=== PATIENT | female | born 1955 | race African-American/Black ===

== ENCOUNTER 2021-06-10 23:08 | Emergency (ER) | payer BC, SELFPAY ==
[2021-06-10] MEDS ORDERED: Acetaminophen 500 MG TAB ONE (23:38)
[2021-06-10] MEDS ORDERED: Sodium Chloride 0.9% 1,000 ML ONE (23:38)
[2021-06-10] MEDS ORDERED: Ondansetron PF 4 MG/2 ML Vial ONE (23:56)
[2021-06-11 00:06] LABS: #Lymphocytes 0.9 thou/uL (1.20-3.40); #Monocytes 0.3 thou/uL (0.11-0.59); #Neutrophils 1.8 thou/uL (1.40-6.50); %Basophils 0.3 % (0.0-1.0); %Lymphocytes 28.8 % (21.0-51.0); %Monocytes 9.2 % (0.0-10.0); %Neutrophils 61.7 % (42.0-75.0); Hemoglobin 12.3 g/dL (12.0-16.0); Mean Corpuscular HGB CONC 32.4 g/dL (32.0-36.0); Mean Corpuscular Hemoglobin 30.4 pg (27.0-31.0); Mean Corpuscular Volume 93.6 fL (78.0-98.0); Mean Platelet Volume 8.4 fL (7.4-10.4); Platelet Count 154 thou/uL (130-400); RBC Distribution Width 11.2 % (11.5-14.5); Red Blood Cell (RBC) Count 4.06 mill/uL (4.20-5.40)
[2021-06-11 00:24] LABS: ALT (SGPT) 54 U/L (8-55); AST (SGOT) 92 U/L (5-34); Albumin 4.1 g/dL (3.4-4.8); Alkaline Phosphatase 90 U/L (40-110); Anion Gap 17 mmol/L (10-20); BUN (Urea Nitrogen) 10 mg/dL (9.8-20.1); Bilirubin, Total 0.9 mg/dL (0.2-1.2); Calc. Creatinine Clearance 0 mL/min (70-130); Calcium 8.8 mg/dL (7.8-10.44); Carbon Dioxide 18 mmol/L (23-31); Chloride 106 mmol/L (98-107); Globulin 4.3 g/dL (2.4-3.5); Glucose 115 mg/dL (80-115); Potassium 3.2 mmol/L (3.5-5.1); Protein, Total 8.4 g/dL (5.8-8.1); Sodium 138 mmol/L (136-145)
[2021-06-11] MEDS ORDERED: Sodium Chloride 0.9% 1,000 ML ONE (01:27)
[2021-06-11] MEDS ORDERED: Amlodipine 5 MG TAB ONE (02:00)
[2021-06-11 02:09] LABS: Bilirubin Moderate (Negative); Blood, Urine Small (Negative); Clarity Cloudy (Clear); Glucose, Urine (Dipstick) Negative (Negative); Ketone, Urine > or equal to 80 mg/dL (Negative); Leukocyte Negative (Negative); Nitrite Negative (Negative); Protein, Urine (Dipstick) > or equal to 300 mg/dL (Neg-Trace)
[2021-06-11 02:15] LABS: Specific Gravity, Urine 1.028 (1.002-1.036)
[2021-06-11 02:22] LABS: RBC/HPF 0-3 HPF (0-3); WBC/HPF 0-3 HPF (0-3)
[2021-06-11 02:23] LABS: Bacteria/HPF 1+ HPF (None Seen); Mucous/LPF 1+ LPF (<2+)
[2021-06-11] MEDS ORDERED: Aspirin 325 MG TAB ONE (03:10)
[2021-06-11 23:18] LABS: SARS-CoV-2 PCR by NAA DETECTED (NotDetected)
== END 2021-06-11 03:25 | disposition home or self-care (01) ==
LOC: NAV ERS 23:08
DX: U07.1 COVID-19 (principal); E86.0 Dehydration; I10 Essential (primary) hypertension; E03.9 Hypothyroidism, unspecified; Z79.899 Other long term (current) drug therapy
CPT/HCPCS: 36415; 71045; 80053; 81003; 81015; 83605; 84484; 85025; 87040; 87804; 96374; J2405; J7050; U0003; U0005